=== PATIENT | male | born 1985 | race African-American/Black ===

== ENCOUNTER 2018-10-28 02:26 | Emergency (ER) | payer MEDICAID, OTHER ==
[~2018-10-28] VITALS: Ht 177.8 cm; Wt 90.7 kg
[2018-10-28 02:37] VITALS: BP 130/78
== END 2018-10-28 05:46 | disposition left against medical advice (07) ==
LOC: EDBD 02:26 → ER 02:30
DX: R22.0 Localized swelling, mass and lump, head (principal); Z53.21 Procedure and treatment not carried out due to patient leaving prior to being seen by health care provider